=== PATIENT | male | born 1985 | race African-American/Black ===

== ENCOUNTER 2018-09-22 14:30 | Inpatient (IN) | payer MEDICAID, OTHER ==
[2018-09-22] MEDS: SOD CHLORIDE 0.9% 1,000 ML IV ×4 (15:21→18:18)
[2018-09-22 15:24] LABS: ADD MAN DIFF? NO
[2018-09-22 15:28] LABS: BASOPHILS % 0.2 % (0.0-2.0); EOSINOPHILS # 0.1 10^3/ul (0.0-0.5); EOSINOPHILS % 1.6 % (0.0-7.0); HEMATOCRIT 43.2 % (42.0-52.0); HEMOGLOBIN 13.9 g/dl (14.0-18.0); LYMPHOCYTES # 1.6 10^3/ul (0.8-2.9); LYMPHOCYTES % 36.7 % (15.0-51.0); MEAN CORPUSCULAR HEMOGLOBIN 25.1 pg (29.0-33.0); MEAN CORPUSCULAR HGB CONC 32.2 g/dl (32.0-37.0); MEAN CORPUSCULAR VOLUME 78.1 fl (82.0-101.0); MEAN PLATELET VOLUME 12.2 fl (7.4-10.4); MONOCYTE # 0.6 10^3/ul (0.3-0.9); MONOCYTES % 13.2 % (0.0-11.0); NEUTROPHIL # 2.1 10^3/ul (1.6-7.5); NEUTROPHILS % 48.1 % (39.0-77.0); PLATELET COUNT 183 10^3/UL (140-415); RED BLOOD COUNT 5.53 10^6/ul (4.70-6.10); RED CELL DISTRIBUTION WIDTH 14.1 % (11.5-14.5)
[2018-09-22 15:28] LABS: WHITE BLOOD COUNT 4.4 10^3/ul (4.8-10.8)
[2018-09-22 15:34] LABS: ADD UMIC YES; UR ASCORBIC ACID NEGATIVE (NEGATIVE); UR BILIRUBIN (Dip) NEGATIVE (NEGATIVE); UR BLOOD (Dip) NEGATIVE (NEGATIVE); UR CLARITY CLEAR (CLEAR); UR COLOR YELLOW (YELLOW); UR GLUCOSE (Dip) NEGATIVE (NEGATIVE); UR KETONES (Dip) NEGATIVE (NEGATIVE); UR LEUKOCYTE ESTERASE (Dip) TRACE Leu/ul (NEGATIVE); UR MUCUS FEW /HPF (NONE SEEN); UR NITRITE (Dip) NEGATIVE (NEGATIVE); UR RBC 0 /HPF (0-5); UR TOTAL PROTEIN (Dip) 1+ mg/dl (NEGATIVE); UR UROBILINOGEN (Dip) 1+ mg/dL (NEGATIVE); UR WBC 1 /HPF (0-5)
[2018-09-22 15:50] LABS: ALANINE AMINOTRANSFERASE 17 IU/L (13-69); ALBUMIN 4.6 g/dl (3.3-4.9); ALBUMIN/GLOBULIN RATIO 1.09; ALKALINE PHOSPHATASE 74 IU/L (42-121); ANION GAP 9 (5-13); ASPARTATE AMINO TRANSFERASE 30 IU/L (15-46); BILIRUBIN,INDIRECT 0.2 mg/dl (0-1.1); BILIRUBIN,TOTAL 0.2 mg/dl (0.2-1.3); BLOOD UREA NITROGEN 14 mg/dl (7-20); CALCIUM 9.6 mg/dl (8.4-10.2); CARBON DIOXIDE 30 mmol/L (21-31); CHLORIDE 104 mmol/L (97-110); CREATININE 1.45 mg/dl (0.61-1.24); Estimated GFR 56 mL/min (>60); GLUCOSE 76 mg/dl (70-220); LIPASE 194 U/L (23-300); POTASSIUM 4.1 mmol/L (3.5-5.1); SODIUM 143 mmol/L (135-144); TOTAL PROTEIN 8.8 g/dl (6.1-8.1)
[2018-09-22] MEDS: PIPER-TAZO 3.375 GM IV (PMX) 100 ML IVPB (15:57)
[2018-09-22] MEDS ORDERED: hydrALAzine 20 MG INJ IV (17:00)
[2018-09-22] MEDS ORDERED: ACETAMINOPHEN 325 MG TAB PO ×2 (17:00→17:30)
[2018-09-22] MEDS ORDERED: NITROGLYCERIN (SL) 0.4 MG TAB SL (17:00)
[2018-09-22] MEDS ORDERED: LORAZEPAM 2 MG INJ IV (17:00)
[2018-09-22] MEDS ORDERED: MAGNESIUM HYDROXIDE 30ML CUP PO (17:00)
[2018-09-22] MEDS ORDERED: DOCUSATE SODIUM 100 MG CAP PO (17:00)
[2018-09-22] MEDS ORDERED: ONDANSETRON 4 MG INJ IV ×2 (17:00→17:30)
[2018-09-22] MEDS ORDERED: NACL 0.9% 3 ML SYG IV (17:00)
[2018-09-22] MEDS ORDERED: morphine 2 MG INJ IV (17:00)
[2018-09-22] MEDS ORDERED: ALBUTEROL/IPRATROPIUM (NEB) 3 ML AMP HHN (17:00)
[2018-09-22 17:42] LABS: INR 0.92; PROTIME 12.5 Sec (11.9-14.9)
[2018-09-22 17:43] LABS: PARTIAL THROMBOPLASTIN TIME 30.3 Sec (23.0-35.0)
[2018-09-22] MEDS: HEPARIN 5,000 UNIT/1 ML VIAL SC (20:18)
[2018-09-22] MEDS ORDERED: PROCHLORPERAZINE 10 MG INJ IV (23:30)
[2018-09-22] MEDS ORDERED: HYDROmorphONE 1 MG/5 ML IV SYRINGE IV ×3 (23:30)
[2018-09-22] MEDS ORDERED: FENTAnyl 50 MCG/ML VIAL IV ×2 (23:30)
[2018-09-22] MEDS ORDERED: DIPHENHYDRAMINE 50 MG INJ IV (23:30)
[2018-09-22] MEDS ORDERED: MEPERIDINE 25 MG INJ IV (23:30)
[2018-09-22] MEDS ORDERED: PROPOFOL 20 ML (23:37)
[2018-09-22] MEDS ORDERED: ROCURONIUM 50 MG INJ (23:37)
[2018-09-22] MEDS ORDERED: FENTAnyl 50 MCG/ML VIAL (23:37)
[2018-09-22] MEDS ORDERED: MIDAZOLAM 1 MG/ML 2 ML INJ (23:37)
[2018-09-22] MEDS ORDERED: SUCCINYLCHOLINE CHLORIDE 100 MG/5 ML SYG IV (23:37)
[2018-09-22] MEDS ORDERED: LIDOCAINE 2% (SDV) 5 ML INJ (23:37)
[2018-09-22] MEDS ORDERED: ROPIVACAINE 0.5 % 30 ML VIAL (23:46)
[2018-09-23] MEDS ORDERED: CEFAZOLIN 1 GM INJ (00:10)
[2018-09-23] MEDS ORDERED: PROPOFOL 20 ML (00:11)
[2018-09-23] MEDS ORDERED: FAMOTIDINE 20 MG INJ (00:12)
[2018-09-23] MEDS ORDERED: ONDANSETRON 4 MG INJ (00:12)
[2018-09-23] MEDS ORDERED: DEXAMETHASONE 4 MG/ML 5 ML INJ (00:12)
[2018-09-23] MEDS ORDERED: FENTAnyl 50 MCG/ML VIAL (00:26)
[2018-09-23] MEDS ORDERED: GLYCOPYRROLATE 1 MG INJ (00:30)
[2018-09-23] MEDS ORDERED: NEOSTIGMINE 3 MG/3 ML SYRINGE (00:30)
[2018-09-23] MEDS ORDERED: hydrALAzine 20 MG INJ (00:32)
[2018-09-23] MEDS ORDERED: HYDROmorphONE 2 MG/ML SYG (00:36)
[2018-09-23] MEDS: FENTAnyl 50 MCG/ML VIAL IV (01:26)
[2018-09-23] MEDS: ONDANSETRON 4 MG INJ IV (01:27)
[2018-09-23] MEDS: morphine SULFATE/PF (2 MG/2 ML) SYG IV ×2 (03:09→08:22)
[2018-09-23] MEDS: SOD CHLORIDE 0.9% 1,000 ML IV (03:11)
[2018-09-23] MEDS ORDERED: HYDROmorphONE 0.5 MG/0.5 ML SYG IV (03:30)
[2018-09-23] MEDS ORDERED: ACETAMINOPHEN 325 MG TAB PO (03:30)
[2018-09-23] MEDS ORDERED: ONDANSETRON 4 MG INJ IV (03:30)
[2018-09-23] MEDS: D5W-0.45 NACL + KCL 20 MEQ 1,000 ML IV (04:24)
[2018-09-23 05:10] LABS: ADD MAN DIFF? NO
[2018-09-23 05:14] LABS: BASOPHILS % 0.1 % (0.0-2.0); EOSINOPHILS % 0.1 % (0.0-7.0); HEMATOCRIT 38.1 % (42.0-52.0); HEMOGLOBIN 12.4 g/dl (14.0-18.0); LYMPHOCYTES # 0.7 10^3/ul (0.8-2.9); LYMPHOCYTES % 8.4 % (15.0-51.0); MEAN CORPUSCULAR HEMOGLOBIN 25.5 pg (29.0-33.0); MEAN CORPUSCULAR HGB CONC 32.5 g/dl (32.0-37.0); MEAN CORPUSCULAR VOLUME 78.2 fl (82.0-101.0); MEAN PLATELET VOLUME 12.3 fl (7.4-10.4); MONOCYTE # 0.2 10^3/ul (0.3-0.9); MONOCYTES % 2.3 % (0.0-11.0); NEUTROPHIL # 7.7 10^3/ul (1.6-7.5); NEUTROPHILS % 88.9 % (39.0-77.0); PLATELET COUNT 155 10^3/UL (140-415); RED BLOOD COUNT 4.87 10^6/ul (4.70-6.10); RED CELL DISTRIBUTION WIDTH 14.4 % (11.5-14.5)
[2018-09-23 05:14] LABS: WHITE BLOOD COUNT 8.6 10^3/ul (4.8-10.8)
[2018-09-23 05:30] LABS: HEMOGLOBIN A1C 5.3 % (0-5.9)
[2018-09-23 05:36] LABS: ANION GAP 10 (5-13); BLOOD UREA NITROGEN 9 mg/dl (7-20); CALCIUM 8.7 mg/dl (8.4-10.2); CARBON DIOXIDE 23 mmol/L (21-31); CHLORIDE 105 mmol/L (97-110); CREATININE 1.13 mg/dl (0.61-1.24); Estimated GFR > 60 mL/min (>60); GLUCOSE 92 mg/dl (70-220); MAGNESIUM 1.9 mg/dl (1.7-2.5); PHOSPHORUS 2.1 mg/dl (2.5-4.9); POTASSIUM 3.6 mmol/L (3.5-5.1); SODIUM 138 mmol/L (135-144)
[2018-09-23 05:59] LABS: CHOL/HDL RATIO 4.3 RATIO; HDL CHOLESTEROL 44 mg/dl (28-63); LDL CHOLESTEROL,CALCULATED 136 mg/dl; TRIGLYCERIDES 60 mg/dl (0-149)
[2018-09-23 05:59] LABS: CHOLESTEROL 192 mg/dl (100-200)
[2018-09-23 06:11] LABS: THYROID STIMULATING HORMONE 0.944 MIU/L (0.465-4.680)
[2018-09-23] MEDS ORDERED: SEVOFLURANE 15 MIN (07:00)
[2018-09-23] MEDS: FAMOTIDINE 20 MG INJ IV (08:54)
[2018-09-23] MEDS: DOCUSATE SODIUM 100 MG CAP PO (08:54)
[2018-09-23] MEDS: HEPARIN 5,000 UNIT/1 ML VIAL SC (08:57)
[2018-09-23] MEDS: HYDROCODONE/APAP (5/325) TAB PO (11:03)
[2018-09-23] MEDS: KETOROLAC 30 MG INJ IV (14:56)
[2018-09-23] MEDS: POTASSIUM PHOSPHATE 20 MEQ in SOD CHLORIDE 0.9% 250 ML IVPB (14:57)
[2018-09-26] MEDS ORDERED: IBUPROFEN 600 MG TAB PO (03:30)
== END 2018-09-23 16:15 | disposition home or self-care (01) | DRG 343 ==
LOC: FTE 14:30 → TEL 17:08 → MS1 23:35
PROC: 0DTJ4ZZ Resection of Appendix, Percutaneous Endoscopic Approach (ICD-10-PCS; principal; 2018-09-22 23:43)
DX: K35.80 Unspecified acute appendicitis (principal)
CPT/HCPCS: 36415; 74176; 80048; 80053; 80061; 81001; 83036; 83690; 83735; 84100; 84439; 84443; 85025; 85610; 85730; 88304; 96361; 96365; 97161; 99285-25